=== PATIENT | male | born 1965 | race African-American/Black ===

== ENCOUNTER 2020-09-05 11:24 | Observation (INO) ==
[2020-09-05] MEDS ORDERED: ASPIRIN 325 MG TABLET PO STA (11:47)
[2020-09-05] MEDS ORDERED: NITROGLYCERIN SL 0.4 MG TABLET SL PRN (11:47)
[2020-09-05] MEDS ORDERED: NITROGLYCERIN SL 0.4 MG TABLET SL ONE (11:52)
[2020-09-05 11:55] LABS: Basophils % 0.2 % (0.0-0.8); Eosinophils # 0.1 10*3/uL (0.0-0.87); Eosinophils % 1.2 % (0.00-10.9); Hematocrit 44.9 VOL% (42.0-52.0); Hemoglobin 14.7 GM/DL (14.0-18.0); Immature Granulocytes % 0.4 %; Immature Granulocytes Absolute 0.04 #; Lymphocytes # 3.6 10*3/uL (1.4-4.0); Mean Corpuscular HGB Conc 32.7 GM/DL (32-36); Mean Corpuscular Volume 89.3 FL (87-102); Mean Platelet Volume 9.2 FL (9.6-12.0); Monocytes % 11.9 % (1.7-12.7); Neutrophils % 51.3 % (38.7-73.9); Platelet Count 269 T/CUMM (130-400); Red Blood Count 5.03 MC/CUMM (3.8-5.5); Red Cell Distribution Width 14.4 % (9.3-17.3); White Blood Count 10.3 T/CUMM (4-12)
[2020-09-05 12:06] LABS: INR 1.1; PT Patient Result 12.1 SECS (10.5-12.0); Partial Thromboplastin Time 28.8 SECS (23.9-33.8)
[2020-09-05 12:21] LABS: Alanine Aminotransferase 35 U/L (16-61); Albumin 3.9 G/DL (3.4-5.0); Alkaline Phosphatase 51 U/L (45-117); Aspartate Amino Transferase 27 U/L (0-37); Bilirubin,Total < 0.39 MG/DL (0.2-1.0); Blood Urea Nitrogen 10 MG/DL (7-18); Calcium 9.2 MG/DL (8.5-10.1); Carbon Dioxide 32 MMOL/L (21-32); Estimated Glom Filtration Rate 109 ML/MIN; Glucose 95 MG/DL (74-106); Osmolality,Calculated 279.3 MOS/KG (273-304); Potassium 2.8 MMOL/L (3.5-5.1); Sodium 141 MMOL/L (136-145); Total Protein 7.8 G/DL (6.4-8.2)
[2020-09-05] MEDS ORDERED: MAGNESIUM SULF RIDER 2 GM/50 ML PREMIX IV PRN (14:16)
[2020-09-05] MEDS ORDERED: MAGNESIUM SULF RIDER 4 GM/100 ML PREMIX IV PRN (14:16)
[2020-09-05] MEDS: SODIUM CHLORIDE 0.45% 1,000 ML IV SCH (16:13)
[2020-09-05] MEDS: ENOXAPARIN 120 MG/0.8 ML SYRINGE SUBCUT SCH (16:13)
[2020-09-05] MEDS: MORPHINE 4 MG/1 ML VIAL IV PRN (20:03)
[2020-09-05] MEDS ORDERED: CETIRIZINE 10 MG TABLET PO SCH (21:00)
[2020-09-05] MEDS ORDERED: MONTELUKAST 10 MG TABLET PO SCH (21:00)
[2020-09-05] MEDS: GABAPENTIN 300 MG CAPSULE PO SCH (22:52)
[2020-09-05] MEDS: POTASSIUM CHLORIDE 20 MEQ TABLET PO PRN (23:32)
[2020-09-06] MEDS: SODIUM CHLORIDE 0.45% 1,000 ML IV SCH ×2 (00:15→09:50)
[2020-09-06] MEDS: MORPHINE 4 MG/1 ML VIAL IV PRN ×3 (00:28→09:45)
[2020-09-06] MEDS: POTASSIUM CHLORIDE 20 MEQ TABLET PO PRN ×3 (01:35→05:45)
[2020-09-06 04:30] LABS: Risk Ratio 5.24; VLDL CHOLESTEROL 72.6 MG/DL
[2020-09-06 06:09] LABS: Calcium 8.7 MG/DL (8.5-10.1); Osmolality,Calculated 283.4 MOS/KG (273-304); Potassium 3.3 MMOL/L (3.5-5.1)
[2020-09-06] MEDS ORDERED: CHLORTHALIDONE 25 MG TABLET PO SCH (09:00)
[2020-09-06] MEDS ORDERED: DILTIAZEM CD 300 MG CAPSULE PO SCH (09:00)
[2020-09-06] MEDS ORDERED: PANTOPRAZOLE 40 MG TABLET PO SCH (09:00)
[2020-09-06] MEDS ORDERED: FLUTICASONE 50 MCG NASAL SPRAY 16 GM BOTTLE BOTH NARES SCH (09:00)
[2020-09-06] MEDS: GABAPENTIN 300 MG CAPSULE PO SCH (09:45)
[2020-09-06] MEDS: ENOXAPARIN 120 MG/0.8 ML SYRINGE SUBCUT SCH (09:45)
[2020-09-06 12:35] VITALS: BP 162/88
== END 2020-09-06 12:31 | disposition home or self-care (01) ==
LOC: N.ED 11:24 → N.EDINP 11:24
PROVIDERS: ADMIT Family Medicine; ATTEND Family Medicine